=== PATIENT | female | born 1945 | race Caucasian/White ===

== ENCOUNTER 2018-11-30 11:41 | Outpatient (CLI) ==
[2014-06-23 08:58] VITALS: BMI 38.2
--- NOTE | 2018-11-30 12:15 | DI ---
EXAM: Right hip two-view HISTORY: Right hip pain COMPARISON: None FINDINGS: No fracture or dislocation. Mild to moderate osteoarthritis right hip with joint space na rrowing osteophyte formation. No focal soft tissue abnormality. IMPERSSION: Mild to moderate osteoarthritis right hip.
== END 2018-11-30 11:42 | disposition home or self-care (01) ==
LOC: RAD 11:41
PROVIDERS: ATTEND Family Medicine
DX: M25.551 Pain in right hip (principal)